=== PATIENT | female | born 1950 | race Caucasian/White ===

== ENCOUNTER → 2017-10-06 | Outpatient (CLI) | payer MEDICARE, BC ==
[~2017-10-06] MED LIST: ASPIR 8181 MG PO; CELEXA20 MG PO; EVISTA PO; KEFLEX500 MG PO; LASIX 20 MG TAB20 MG PO; NAMENDA XR28 MG PO; NEOSPORIN OINTM15 GM TP; POTASSIUM20 PO; TRAMADOL 50 MG50 MG PO; VITAMIN D1000 UNI1 PO; WOMEN'S DAILY1 EAC4 PO
== END ==
LOC: M.ULTRA 15:00
DX: M79.605 Pain in left leg (principal); L97.321 Non-pressure chronic ulcer of left ankle limited to breakdown of skin; M79.89 Other specified soft tissue disorders

== ENCOUNTER → 2017-11-18 | Outpatient (CLI) | payer MEDICARE, BC | LOC: M.WC 08:51 | DX: L89.623 Pressure ulcer of left heel, stage 3 (principal); I70.235 Atherosclerosis of native arteries of right leg with ulceration of other part of foot; L97.511 Non-pressure chronic ulcer of other part of right foot limited to breakdown of skin; I10 Essential (primary) hypertension; F01.50 Vascular dementia, unspecified severity, without behavioral disturbance, psychotic disturbance, mood disturbance, and anxiety; F33.1 Major depressive disorder, recurrent, moderate; Z68.25 Body mass index [BMI] 25.0-25.9, adult ==

== ENCOUNTER → 2017-11-25 | Outpatient (CLI) | payer MEDICARE, BC | LOC: M.WC 04:38 | DX: I70.235 Atherosclerosis of native arteries of right leg with ulceration of other part of foot (principal); L97.511 Non-pressure chronic ulcer of other part of right foot limited to breakdown of skin; L89.623 Pressure ulcer of left heel, stage 3; I10 Essential (primary) hypertension; F01.50 Vascular dementia, unspecified severity, without behavioral disturbance, psychotic disturbance, mood disturbance, and anxiety; F33.1 Major depressive disorder, recurrent, moderate; Z68.25 Body mass index [BMI] 25.0-25.9, adult ==

== ENCOUNTER → 2017-12-03 | Outpatient (CLI) | payer MEDICARE, BC | LOC: M.WC 12-02 08:30 | DX: I70.235 Atherosclerosis of native arteries of right leg with ulceration of other part of foot (principal); L97.511 Non-pressure chronic ulcer of other part of right foot limited to breakdown of skin; L89.623 Pressure ulcer of left heel, stage 3; I10 Essential (primary) hypertension; L84 Corns and callosities; F01.50 Vascular dementia, unspecified severity, without behavioral disturbance, psychotic disturbance, mood disturbance, and anxiety; F33.1 Major depressive disorder, recurrent, moderate; Z68.25 Body mass index [BMI] 25.0-25.9, adult; Z90.710 Acquired absence of both cervix and uterus ==

== ENCOUNTER → 2017-12-09 | Outpatient (CLI) | payer MEDICARE, BC | LOC: M.WC 02:23 | DX: I70.261 Atherosclerosis of native arteries of extremities with gangrene, right leg (principal); L97.511 Non-pressure chronic ulcer of other part of right foot limited to breakdown of skin; L89.623 Pressure ulcer of left heel, stage 3; I10 Essential (primary) hypertension; F01.50 Vascular dementia, unspecified severity, without behavioral disturbance, psychotic disturbance, mood disturbance, and anxiety; F33.1 Major depressive disorder, recurrent, moderate; Z68.25 Body mass index [BMI] 25.0-25.9, adult; Z90.710 Acquired absence of both cervix and uterus ==

== ENCOUNTER → 2017-12-16 | Outpatient (CLI) | payer MEDICARE, BC | LOC: M.WC 01:07 | DX: I70.235 Atherosclerosis of native arteries of right leg with ulceration of other part of foot (principal); L97.511 Non-pressure chronic ulcer of other part of right foot limited to breakdown of skin; L89.623 Pressure ulcer of left heel, stage 3; I10 Essential (primary) hypertension; F01.50 Vascular dementia, unspecified severity, without behavioral disturbance, psychotic disturbance, mood disturbance, and anxiety; F33.1 Major depressive disorder, recurrent, moderate; Z68.25 Body mass index [BMI] 25.0-25.9, adult ==

== ENCOUNTER → 2017-12-23 | Outpatient (CLI) | payer MEDICARE, BC | LOC: M.WC 03:53 | DX: L89.623 Pressure ulcer of left heel, stage 3 (principal); I70.261 Atherosclerosis of native arteries of extremities with gangrene, right leg; L97.511 Non-pressure chronic ulcer of other part of right foot limited to breakdown of skin; I87.303 Chronic venous hypertension (idiopathic) without complications of bilateral lower extremity; F01.50 Vascular dementia, unspecified severity, without behavioral disturbance, psychotic disturbance, mood disturbance, and anxiety; F33.1 Major depressive disorder, recurrent, moderate; Z90.710 Acquired absence of both cervix and uterus ==

== ENCOUNTER → 2017-12-29 | Outpatient (CLI) | payer MEDICARE, BC | LOC: M.WC 08:30 | DX: L89.623 Pressure ulcer of left heel, stage 3 (principal); I70.261 Atherosclerosis of native arteries of extremities with gangrene, right leg; I87.303 Chronic venous hypertension (idiopathic) without complications of bilateral lower extremity; F01.50 Vascular dementia, unspecified severity, without behavioral disturbance, psychotic disturbance, mood disturbance, and anxiety; F33.1 Major depressive disorder, recurrent, moderate; Z68.25 Body mass index [BMI] 25.0-25.9, adult ==

== ENCOUNTER → 2018-01-06 | Outpatient (CLI) | payer MEDICARE, BC | LOC: M.WC 03:55 | DX: I70.235 Atherosclerosis of native arteries of right leg with ulceration of other part of foot (principal); L97.511 Non-pressure chronic ulcer of other part of right foot limited to breakdown of skin; L89.623 Pressure ulcer of left heel, stage 3; I10 Essential (primary) hypertension; F01.50 Vascular dementia, unspecified severity, without behavioral disturbance, psychotic disturbance, mood disturbance, and anxiety; F33.1 Major depressive disorder, recurrent, moderate; Z90.710 Acquired absence of both cervix and uterus ==

== ENCOUNTER → 2018-01-13 | Outpatient (CLI) | payer MEDICARE, BC | LOC: M.WC 02:07 | DX: L89.623 Pressure ulcer of left heel, stage 3 (principal); I70.261 Atherosclerosis of native arteries of extremities with gangrene, right leg; L97.511 Non-pressure chronic ulcer of other part of right foot limited to breakdown of skin; I87.313 Chronic venous hypertension (idiopathic) with ulcer of bilateral lower extremity; L97.521 Non-pressure chronic ulcer of other part of left foot limited to breakdown of skin; I10 Essential (primary) hypertension; F01.50 Vascular dementia, unspecified severity, without behavioral disturbance, psychotic disturbance, mood disturbance, and anxiety; F33.1 Major depressive disorder, recurrent, moderate; Z90.710 Acquired absence of both cervix and uterus ==

== ENCOUNTER → 2018-01-20 | Outpatient (CLI) | payer MEDICARE, BC | LOC: M.WC 03:45 | DX: L89.623 Pressure ulcer of left heel, stage 3 (principal); I70.235 Atherosclerosis of native arteries of right leg with ulceration of other part of foot; L97.511 Non-pressure chronic ulcer of other part of right foot limited to breakdown of skin; I10 Essential (primary) hypertension; F01.50 Vascular dementia, unspecified severity, without behavioral disturbance, psychotic disturbance, mood disturbance, and anxiety; F33.1 Major depressive disorder, recurrent, moderate; Z68.25 Body mass index [BMI] 25.0-25.9, adult; Z90.710 Acquired absence of both cervix and uterus ==

== ENCOUNTER → 2018-01-27 | Outpatient (CLI) | payer MEDICARE, BC | LOC: M.WC 03:42 | DX: L89.893 Pressure ulcer of other site, stage 3 (principal); I70.235 Atherosclerosis of native arteries of right leg with ulceration of other part of foot; L97.511 Non-pressure chronic ulcer of other part of right foot limited to breakdown of skin; I87.303 Chronic venous hypertension (idiopathic) without complications of bilateral lower extremity; F01.50 Vascular dementia, unspecified severity, without behavioral disturbance, psychotic disturbance, mood disturbance, and anxiety; F33.1 Major depressive disorder, recurrent, moderate; Z68.25 Body mass index [BMI] 25.0-25.9, adult; Z90.710 Acquired absence of both cervix and uterus ==

== ENCOUNTER → 2018-02-03 | Outpatient (CLI) | payer MEDICARE, BC | LOC: M.WC 02:09 | DX: I70.235 Atherosclerosis of native arteries of right leg with ulceration of other part of foot (principal); L97.511 Non-pressure chronic ulcer of other part of right foot limited to breakdown of skin; F01.50 Vascular dementia, unspecified severity, without behavioral disturbance, psychotic disturbance, mood disturbance, and anxiety; F32.9 Major depressive disorder, single episode, unspecified; Z86.73 Personal history of transient ischemic attack (TIA), and cerebral infarction without residual deficits; Z90.710 Acquired absence of both cervix and uterus ==

== ENCOUNTER → 2018-02-10 | Outpatient (CLI) | payer MEDICARE, BC | LOC: M.WC 03:21 | DX: I70.235 Atherosclerosis of native arteries of right leg with ulceration of other part of foot (principal); L97.511 Non-pressure chronic ulcer of other part of right foot limited to breakdown of skin; I70.261 Atherosclerosis of native arteries of extremities with gangrene, right leg; I87.303 Chronic venous hypertension (idiopathic) without complications of bilateral lower extremity; L84 Corns and callosities; F01.50 Vascular dementia, unspecified severity, without behavioral disturbance, psychotic disturbance, mood disturbance, and anxiety; F33.1 Major depressive disorder, recurrent, moderate; Z86.73 Personal history of transient ischemic attack (TIA), and cerebral infarction without residual deficits; Z90.710 Acquired absence of both cervix and uterus ==

== ENCOUNTER → 2018-02-24 | Outpatient (CLI) | payer MEDICARE, BC | LOC: M.WC 02:24 | DX: I70.261 Atherosclerosis of native arteries of extremities with gangrene, right leg (principal); L97.516 Non-pressure chronic ulcer of other part of right foot with bone involvement without evidence of necrosis; L89.623 Pressure ulcer of left heel, stage 3; I87.313 Chronic venous hypertension (idiopathic) with ulcer of bilateral lower extremity; F01.50 Vascular dementia, unspecified severity, without behavioral disturbance, psychotic disturbance, mood disturbance, and anxiety; F33.1 Major depressive disorder, recurrent, moderate; Z68.25 Body mass index [BMI] 25.0-25.9, adult; Z86.73 Personal history of transient ischemic attack (TIA), and cerebral infarction without residual deficits ==

== ENCOUNTER → 2018-09-12 | Outpatient (CLI) | payer MEDICARE, BC | LOC: M.RAD 13:48 | DX: M84.472D Pathological fracture, left ankle, subsequent encounter for fracture with routine healing (principal); M25.572 Pain in left ankle and joints of left foot; M81.0 Age-related osteoporosis without current pathological fracture; Z90.710 Acquired absence of both cervix and uterus; X58.XXXD Exposure to other specified factors, subsequent encounter ==

== ENCOUNTER 2018-12-25 17:53 | Emergency (ER) | payer MEDICARE, BC ==
[~2018-12-25] VITALS: Ht 162.6 cm; Wt 76.8 kg
[2018-12-25] MEDS ORDERED: ARICEPT10 M1 PO (18:20)
[2018-12-25] MEDS ORDERED: PRINIVIL5 MG PO (18:20)
[2018-12-25 18:36] LABS: ABSOLUTE EOSINOPHILS 0.1 thou/uL (0.0-0.7); ABSOLUTE LYMPHOCYTES 0.6 thou/uL (0.8-5.3); ABSOLUTE MONOCYTES 0.9 thou/uL (0.0-1.2); BASOPHILS 0.5 %; EOSINOPHILS 0.7 %; HEMATOCRIT 47.6 % (37.0-47.0); LYMPHOCYTES 7.4 %; MCH 32.4 pg (26.0-34.0); MCHC 33.6 g/dL (28.0-37.0); MCV 96.3 fL (80.0-100.0); MONOCYTES 10.1 %; MPV 8.4 fl. (7.2-11.1); NUCLEATED RBCS 0 /100WBC; PLATELET COUNT* 208 thou/uL (150-400); POLYS 81.3 %; RBC 4.94 mil/uL (4.20-5.00); RDW-CV 14.6 % (10.5-14.5); WBC 8.6 thou/uL (4.0-11.0)
[2018-12-25 18:44] LABS: CREATININE 1.3 mg/dL (0.6-1.3); POTASSIUM 4.3 mmol/L (3.5-5.1)
[2018-12-25 18:49] LABS: ALBUMIN 3.3 g/dL (3.4-5.0); TOTAL BILIRUBIN 0.7 mg/dL (<0.1-1.0); TOTAL PROTEIN 7.2 g/dL (6.4-8.2)
[2018-12-25 21:01] LABS: URINE BILIRUBIN NEGATIVE (Negative); URINE BLOOD TRACE (Negative); URINE COLOR YELLOW; URINE GLUCOSE-RANDOM NEGATIVE (Negative); URINE KETONES TRACE (Negative); URINE PROTEIN 1+ (Negative); URINE SPECIFIC GRAVITY 1.025 (1.005-1.030); URINE UROBILINOGEN 0.2 E.U./dl (0.2-1.0)
[2018-12-25 21:02] LABS: URINE CLARITY HAZY; URINE LEUKOCYTES-REFLEX 2+ (Negative); URINE NITRITE-REFLEX POSITIVE (Negative)
[2018-12-25] MEDS ORDERED: MACRODANTIN100 MG PO (21:04)
[2018-12-25 21:12] LABS: BACTERIA-REFLEX >30 Many /HPF (None Seen); CASTS None Seen /LPF (None Seen); CRYSTALS None Seen /LPF (None Seen); MUCUS 0-3 Light strn/LPF (None Seen); SQUAMOUS NONE SEEN /LPF (0-3); URINE RBC None Seen /HPF (0-2); URINE WBC-REFLEX >25 Many /HPF (0-5)
[2018-12-25 21:16] VITALS: BP 99/55
== END 2018-12-25 21:36 | disposition home or self-care (01) ==
LOC: M.ERS 17:53
PROVIDERS: Nurse Practitioner Family
DX: N39.0 Urinary tract infection, site not specified (principal); R41.0 Disorientation, unspecified; M81.0 Age-related osteoporosis without current pathological fracture; F03.90 Unspecified dementia, unspecified severity, without behavioral disturbance, psychotic disturbance, mood disturbance, and anxiety; Z90.710 Acquired absence of both cervix and uterus

== ENCOUNTER 2019-02-07 12:13 | Emergency (ER) | payer MEDICARE, BC ==
[~2019-02-07] VITALS: Ht 170.2 cm; Wt 77.1 kg
[~2019-02-07 12:13] MED LIST changes: +ARICEPT10 M1 PO; +MACRODANTIN100 MG PO; +PRINIVIL5 MG PO
[2019-02-07 13:20] LABS: ABSOLUTE BASOPHILS 0.1 thou/uL (0.0-0.2); ABSOLUTE EOSINOPHILS 0.3 thou/uL (0.0-0.7); ABSOLUTE MONOCYTES 0.7 thou/uL (0.0-1.2); ABSOLUTE NEUTROPHILS 5.5 thou/uL (1.6-8.1); BASOPHILS 0.9 %; EOSINOPHILS 3.9 %; HEMATOCRIT 44.7 % (37.0-47.0); HEMOGLOBIN 14.9 gm/dL (12.0-15.0); LYMPHOCYTES 12.8 %; MCH 32.4 pg (26.0-34.0); MCHC 33.4 g/dL (28.0-37.0); MCV 97.2 fL (80.0-100.0); MONOCYTES 9.7 %; MPV 8.3 fl. (7.2-11.1); NUCLEATED RBCS 0 /100WBC; PLATELET COUNT* 237 thou/uL (150-400); POLYS 72.7 %; RDW-CV 15.2 % (10.5-14.5); WBC 7.6 thou/uL (4.0-11.0)
[2019-02-07 13:28] LABS: URINE BILIRUBIN NEGATIVE (Negative); URINE BLOOD NEGATIVE (Negative); URINE CLARITY CLEAR; URINE COLOR YELLOW; URINE GLUCOSE-RANDOM NEGATIVE (Negative); URINE KETONES NEGATIVE (Negative); URINE LEUKOCYTES-REFLEX NEGATIVE (Negative); URINE NITRITE-REFLEX NEGATIVE (Negative); URINE PROTEIN NEGATIVE (Negative); URINE UROBILINOGEN 0.2 E.U./dl (0.2-1.0)
[2019-02-07 13:31] LABS: CALCIUM 10.3 mg/dL (8.5-10.1); CREATININE 1.1 mg/dL (0.6-1.3); POTASSIUM 4.5 mmol/L (3.5-5.1)
[2019-02-07 13:35] LABS: ALBUMIN 3.4 g/dL (3.4-5.0); TOTAL BILIRUBIN 0.4 mg/dL (<0.1-1.0); TOTAL PROTEIN 6.7 g/dL (6.4-8.2)
[2019-02-07 13:57] VITALS: BP 128/77
--- NOTE | 2019-02-07 14:44 | EKG ---
[place] [address] ELECTROCARDIOGRAM REPORT Name: HAO WILLSON Room: [facility]#: [id number] Admission: 02/07/19 Attend Phys: Discharge: 02/07/19 Date of : 46 Report #: [id number] THIS REPORT FOR: //name// [facility] ED Test Date: 2019-02-07 Test Time: 13:24:56 Pat Name: HAO WILLSON Department: Room: Gender: F Living Advisor: : 1950 Requested By: Alanis Renee Order Number: [id number] MD: Siva Gaitan Measurements Intervals [place] Rate: 69 P: 46 [place]: 172 QRS: -15 QRSD: 82 T: 11 QT: 383 QTc: 411 Interpretive Statements Sinus arrhythmia Borderline left axis deviation Low voltage, precordial leads Consider anterior infarct Baseline wander in lead(s) III,V4 No previous ECG available for comparison Electronically Signed On 02-07-2019 14:43:59 CDT by Siva Gaitan [email or web address] <ELECTRONICALLY SIGNED> By: Siva Gaitan MD, [facility] 02/07/19 1443 1324 1324 Siva Gaitan MD, [facility] /EPI
== END 2019-02-07 13:57 | disposition home or self-care (01) ==
LOC: M.ERS 12:13
PROVIDERS: Nurse Practitioner Family
DX: S09.8XXA Other specified injuries of head, initial encounter (principal); F03.90 Unspecified dementia, unspecified severity, without behavioral disturbance, psychotic disturbance, mood disturbance, and anxiety; M81.0 Age-related osteoporosis without current pathological fracture; Z90.710 Acquired absence of both cervix and uterus; W01.198A Fall on same level from slipping, tripping and stumbling with subsequent striking against other object, initial encounter; Y92.002 Bathroom of unspecified non-institutional (private) residence as the place of occurrence of the external cause; Y93.89 Activity, other specified; Y99.8 Other external cause status

== ENCOUNTER 2020-06-14 13:01 | Inpatient (IN) | payer MEDICARE, BC ==
[~2020-06-14] VITALS: Ht 170.2 cm; Wt 73.5 kg
[2020-06-14] VITALS (7 sets, daily range): BP systolic 116–142; BP diastolic 44–75
[~2020-06-14 13:01] MED LIST changes: +LISINOPRIL5 MG PO; -PRINIVIL5 MG PO
[2020-06-14 13:29] LABS: ABSOLUTE EOSINOPHILS 0.1 thou/uL (0.0-0.7); ABSOLUTE LYMPHOCYTES 0.7 thou/uL (0.8-5.3); ABSOLUTE MONOCYTES 0.6 thou/uL (0.0-1.2); ABSOLUTE NEUTROPHILS 4.8 thou/uL (1.6-8.1); BASOPHILS 0.5 %; EOSINOPHILS 1.6 %; LYMPHOCYTES 11.5 %; MCH 32.5 pg (26.0-34.0); MCHC 33.4 g/dL (28.0-37.0); MCV 97.4 fL (80.0-100.0); MONOCYTES 9.6 %; MPV 8.4 fl. (7.2-11.1); NUCLEATED RBCS 0 /100WBC; PLATELET COUNT* 195 thou/uL (150-400); POLYS 76.8 %; RBC 4.62 mil/uL (4.20-5.00); RDW-CV 13.7 % (10.5-14.5); WBC 6.3 thou/uL (4.0-11.0)
[2020-06-14 13:39] LABS: CALCIUM 8.9 mg/dL (8.5-10.1); CREATININE 0.9 mg/dL (0.6-1.3); POTASSIUM 3.1 mmol/L (3.5-5.1)
[2020-06-14 13:40] LABS: APTT 25.9 Seconds (25.0-31.3); PROTIME 10.9 Seconds (9.20-11.50)
[2020-06-14 13:48] LABS: ALBUMIN 2.9 g/dL (3.4-5.0); TOTAL BILIRUBIN 0.8 mg/dL (<0.1-1.0); TOTAL PROTEIN 6.6 g/dL (6.4-8.2)
--- NOTE | 2020-06-14 14:55 | EKG ---
[place] [address] ELECTROCARDIOGRAM REPORT Name: DARRELWARDHAO Elisabeth Room: 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: : 1950 Requested By: Tony Pizarro Order Number: [id number] MD: Siva Gaitan Measurements Intervals [place] Rate: 79 P: 58 [place]: 181 QRS: -8 QRSD: 81 T: 38 QT: 393 QTc: 451 Interpretive Statements Sinus arrhythmia nonspecific ST segment changes Compared to ECG 02/07/2019 13:24:56 no change Electronically Signed On 06-14-2020 14:55:22 NAVAL AIRCREW[employer] TACTICAL HELICOPTER by Siva Gaitan [email or web address] <ELECTRONICALLY SIGNED> By: Siva Gaitan MD, [facility] 06/14/20 1455 15 15 Siva Gaitan MD, [facility] /EPI
[2020-06-14 15:26] LABS: URINE BILIRUBIN NEGATIVE (Negative); URINE BLOOD NEGATIVE (Negative); URINE CLARITY CLEAR; URINE COLOR YELLOW; URINE GLUCOSE-RANDOM NEGATIVE (Negative); URINE KETONES TRACE (Negative); URINE NITRITE-REFLEX NEGATIVE (Negative); URINE PROTEIN NEGATIVE (Negative)
[2020-06-14 15:42] LABS: URINE LEUKOCYTES-REFLEX 2+ (Negative)
[2020-06-14 15:56] LABS: SQUAMOUS 0-3 Few /LPF (0-3)
[2020-06-14 15:57] LABS: BACTERIA-REFLEX >30 Many /HPF (None Seen); CASTS None Seen /LPF (None Seen); CRYSTALS None Seen /LPF (None Seen); MUCUS 0-3 Light strn/LPF (None Seen); URINE RBC 3-10 Few /HPF (0-2); URINE WBC-REFLEX >25 Many /HPF (0-5); WBC CLUMPS Few (None Seen)
[2020-06-14 16:17] LABS: CALCIUM 8.9 mg/dL (8.5-10.1); CREATININE 0.8 mg/dL (0.6-1.3); POTASSIUM 3.4 mmol/L (3.5-5.1)
[2020-06-14 16:20] LABS: MAGNESIUM 1.8 mg/dL (1.8-2.4); PHOSPHORUS* 1.8 mg/dL (2.5-4.9)
[2020-06-15 04:00] VITALS: BP 112/62
[2020-06-15 05:12] LABS: HEMATOCRIT 38.5 % (37.0-47.0); MCH 32.3 pg (26.0-34.0); MCHC 33.3 g/dL (28.0-37.0); MPV 8.7 fl. (7.2-11.1); RBC 3.97 mil/uL (4.20-5.00); RDW-CV 13.4 % (10.5-14.5); WBC 2.6 thou/uL (4.0-11.0)
[2020-06-15 05:43] LABS: HEMOGLOBIN 12.8 gm/dL (12.0-15.0)
[2020-06-15 05:44] LABS: ALBUMIN 2.3 g/dL (3.4-5.0); ALKALINE PHOSPHATASE 73 U/L (46-116); ANION GAP 7 mmol/L (7-16); BUN 13 mg/dL (7-18); CALCIUM 8.2 mg/dL (8.5-10.1); CHLORIDE 109 mmol/L (98-107); CO2 23 mmol/L (21-32); CREATININE 0.6 mg/dL (0.6-1.3); GLUCOSE 124 mg/dL (70-99); MAGNESIUM 1.7 mg/dL (1.8-2.4); POTASSIUM 3.9 mmol/L (3.5-5.1); SGOT 23 U/L (15-37); SGPT 19 U/L (30-65); SODIUM 139 mmol/L (136-145); TOTAL BILIRUBIN 0.4 mg/dL (<0.1-1.0); TOTAL PROTEIN 5.4 g/dL (6.4-8.2); TROPONIN-I LEVEL <0.06 ng/mL (<0.06)
[2020-06-15 08:30] VITALS: BP 115/62
[2020-06-15 12:00] VITALS: BP 113/58
[2020-06-15 16:00] VITALS: BP 111/59
[2020-06-15 20:59] VITALS: BP 116/59
[2020-06-16] VITALS (7 sets, daily range): BP systolic 122–146; BP diastolic 67–89
[2020-06-16 05:02] LABS: HEMATOCRIT 38.7 % (37.0-47.0); HEMOGLOBIN 12.9 gm/dL (12.0-15.0); MCH 32.2 pg (26.0-34.0); MCHC 33.3 g/dL (28.0-37.0); MCV 96.9 fL (80.0-100.0); MPV 8.4 fl. (7.2-11.1); RDW-CV 13.7 % (10.5-14.5); WBC 5.6 thou/uL (4.0-11.0)
[2020-06-16 05:28] LABS: ALBUMIN 2.2 g/dL (3.4-5.0); CALCIUM 7.4 mg/dL (8.5-10.1); CREATININE 0.7 mg/dL (0.6-1.3); MAGNESIUM 1.9 mg/dL (1.8-2.4); POTASSIUM 3.1 mmol/L (3.5-5.1); TOTAL BILIRUBIN 0.2 mg/dL (<0.1-1.0); TOTAL PROTEIN 5.2 g/dL (6.4-8.2)
[2020-06-17 00:40] VITALS: BP 134/80
[2020-06-17 04:44] VITALS: BP 152/81
[2020-06-17 09:00] VITALS: BP 125/76
[2020-06-17 14:02] VITALS: BP 115/70
[2020-06-17 17:16] VITALS: BP 129/75
[2020-06-17 22:36] VITALS: BP 142/75
[2020-06-18] VITALS (8 sets, daily range): BP systolic 105–1234; BP diastolic 63–87
[2020-06-18] MEDS ORDERED: MACROBID 100 M100 MG PO (09:06)
[2020-06-18 10:14] LABS: MAGNESIUM 1.9 mg/dL (1.8-2.4); POTASSIUM 4.1 mmol/L (3.5-5.1)
== END 2020-06-18 16:31 | disposition home health service (06) | DRG 177 ==
LOC: M.ERS 13:01 → M.ORTHSURG 15:22 → M.TBA-ER 15:22 → M.ORTHSURG 17:03
PROVIDERS: Family Medicine; Internal Medicine; ADMIT Family Medicine; ATTEND Family Medicine
DX: U07.1 COVID-19 (principal); J12.89 Other viral pneumonia; E43 Unspecified severe protein-calorie malnutrition; J96.01 Acute respiratory failure with hypoxia; G92 Toxic encephalopathy; N39.0 Urinary tract infection, site not specified; E83.42 Hypomagnesemia; I10 Essential (primary) hypertension; M81.0 Age-related osteoporosis without current pathological fracture; E87.6 Hypokalemia; F03.90 Unspecified dementia, unspecified severity, without behavioral disturbance, psychotic disturbance, mood disturbance, and anxiety; Z90.710 Acquired absence of both cervix and uterus; Z68.25 Body mass index [BMI] 25.0-25.9, adult; Z79.82 Long term (current) use of aspirin; Z79.899 Other long term (current) drug therapy

== ENCOUNTER 2020-07-11 12:40 | Inpatient (IN) | payer MEDICARE, BC ==
[~2020-07-11] VITALS: Ht 170.2 cm; Wt 85.1 kg
[~2020-07-11 12:40] MED LIST changes: +MACROBID 100 M100 MG PO
[2020-07-11 12:43] VITALS: BP 154/104
[2020-07-11 13:10] LABS: ABSOLUTE BASOPHILS 0.1 thou/uL (0.0-0.2); ABSOLUTE EOSINOPHILS 0.2 thou/uL (0.0-0.7); ABSOLUTE MONOCYTES 0.9 thou/uL (0.0-1.2); ABSOLUTE NEUTROPHILS 6.7 thou/uL (1.6-8.1); EOSINOPHILS 2.7 %; HEMATOCRIT 42.6 % (37.0-47.0); HEMOGLOBIN 14.2 gm/dL (12.0-15.0); MCH 32.6 pg (26.0-34.0); MCHC 33.3 g/dL (28.0-37.0); MCV 98.1 fL (80.0-100.0); MPV 7.8 fl. (7.2-11.1); NUCLEATED RBCS 0 /100WBC; PLATELET COUNT* 301 thou/uL (150-400); POLYS 75.3 %; RBC 4.34 mil/uL (4.20-5.00); RDW-CV 14.8 % (10.5-14.5); WBC 8.8 thou/uL (4.0-11.0)
[2020-07-11 13:13] LABS: CALCIUM 9.7 mg/dL (8.5-10.1); POTASSIUM 3.6 mmol/L (3.5-5.1)
[2020-07-11 13:25] LABS: ALBUMIN 3.6 g/dL (3.4-5.0); TOTAL BILIRUBIN 0.6 mg/dL (<0.1-1.0); TOTAL PROTEIN 7.2 g/dL (6.4-8.2)
--- NOTE | 2020-07-11 16:19 | EKG ---
[place] [address] ELECTROCARDIOGRAM REPORT Name: HAO WILLSON Room: [place] [address] ADM IN ..#: [id number] Admission: 07/11/20 Attend Phys: Stuart Chou Discharge: Date of : 46 Date of Service: 07/11/20 1325 Report #: [id number] THIS REPORT FOR: //name// [facility] ED Test Date: 2020-07-11 Test Time: 13:25:39 Pat Name: HAO WILLSON Department: Room: [facility] Gender: F Food Photographer: DIOGENES : 1950 Requested By: Tom Elaine Order Number: [id number] MD: Siva Gaitan Measurements Intervals [place] Rate: 87 P: 62 ID: 159 QRS: -7 QRSD: 77 T: 30 QT: 366 QTc: 441 Interpretive Statements Sinus rhythm poor r wave progression Probable left atrial enlargement Compared to ECG 06/14/2020 13:16:19 Sinus arrhythmia no longer present Electronically Signed On 07-11-2020 16:19:10 CLAIM SPECIALIST by Siva Gaitan [email or web address] <ELECTRONICALLY SIGNED> By: Siva Gaitan MD, [facility] 07/11/20 1619 1325 1325 Siva Gaitan MD, [facility] /EPI
[2020-07-11 17:45] VITALS: BP 161/80
[2020-07-11 18:10] VITALS: BP 134/74
--- NOTE | 2020-07-11 19:15 | NUR ---
PATIENT ARRIVED TO UNIT APPROX. 1805 WITH DIAGNOSIS OF LLE CELLULITIS AND DVT. PATIENT IS A&OX4, PLEASANT AND COOPERATIVE WITH CARES. DENIES ANY PAIN. LLE IS RED, SWOLLEN WITH APPROX. 3+ PITTING EDEMA. PATIENT STATES SHE HAD COVID APPROX. 3 WEEKS AGO AND WAS QUARANTINED IN HER [facility], TESTED NEGATIVE TODAY. PATIENT STATES SHE USES A WALKER AT HOME. DPOA IS DAUGHTER, ALETA CONCEPCION. CALL LIGHT WITHIN REACH.
[2020-07-11 20:10] VITALS: BP 130/71
[2020-07-12 04:33] VITALS: BP 120/66
--- NOTE | 2020-07-12 04:55 | NUR ---
PT SLEPT WELL OVERNIGHT. UP WITH ASSIST TO BSC TO VOID OVERNIGHT. DENIES PAIN. LLE ELEVATED ON PILLOW. RFA SL, ABX GIVEN ORDERED.AOX4, FORGETFUL, PLEASANT. CALL LITE IN EASY REACH, BED ALARM ON FOR SAFETY. LEFT MESSAGE FOR DPOA DTR HELENE LAST NIGHT WITH UPDATE ON PT CONDITION AND PLAN OF CARE.
[2020-07-12 06:20] LABS: CHOLESTEROL 220 mg/dL (<200); HDL CHOLESTEROL 59 mg/dL (>40); LDL CHOLESTEROL 147 mg/dL (<100); TC:HDL 3.7 Ratio (Not establshd); TRIGLYCERIDE 70 mg/dL (<150); VLDL 14 mg/dL (<40)
[2020-07-12 06:21] LABS: SERUM ASSESSMENT Clear
[2020-07-12 08:10] VITALS: BP 105/48
--- NOTE | 2020-07-12 12:38 | NUR ---
Pt is A&O. Resides at [facility]. Independent and active. Pt uses a walker within her apartment and uses a cane when out in the community. [facility]L provides all meals. No hx of HH or SNF. Goal is home at dc, CM following for dc needs, Pt does not anticipate having any needs. Following.
[2020-07-12] MEDS ORDERED: ELIQUIS5 MG PO (15:47)
[2020-07-12] MEDS ORDERED: VITAMIN D310 MC4 PO (15:48)
[2020-07-12] MEDS ORDERED: PEPCID20 MG PO (15:48)
[2020-07-12] MEDS ORDERED: KEFLEX500 M1 PO (16:06)
[2020-07-12 16:17] VITALS: BP 120/66
[2020-07-12 16:36] VITALS: BP 120/66
--- NOTE | 2020-07-12 21:37 | NUR ---
Pt remained A&O x4 for entire shift. Vital signs stable. Pt denies any pain. Pt reports her left leg looks better today than yesterday. Pt eager to go home today. Pt got herself dressed and ready to leave. Bed in low position, call light within reach, meds given per MAR.
[2020-07-12 23:07] LABS: GLYCOHEMOGLOBIN (HGB A1C) 5.7 % (4.8-5.6)
== END 2020-07-12 17:07 | disposition home or self-care (01) | DRG 300 ==
LOC: M.ERS 12:40 → M.TBA-ER 13:47 → M.3W 13:47
PROVIDERS: Physician Assistant; ADMIT Internal Medicine; ATTEND Internal Medicine
DX: I82.412 Acute embolism and thrombosis of left femoral vein (principal); L03.116 Cellulitis of left lower limb; M81.0 Age-related osteoporosis without current pathological fracture; F03.90 Unspecified dementia, unspecified severity, without behavioral disturbance, psychotic disturbance, mood disturbance, and anxiety; I10 Essential (primary) hypertension; F32.9 Major depressive disorder, single episode, unspecified; I82.432 Acute embolism and thrombosis of left popliteal vein; Z20.822 Contact with and (suspected) exposure to COVID-19; Z90.710 Acquired absence of both cervix and uterus; Z79.899 Other long term (current) drug therapy

== ENCOUNTER 2020-07-13 20:38 | Inpatient (IN) | payer MEDICARE, BC ==
[~2020-07-13] VITALS: Ht 170.2 cm; Wt 78.2 kg
[~2020-07-13 20:38] MED LIST changes: +ELIQUIS5 MG PO; +KEFLEX500 M1 PO; +PEPCID20 MG PO; +VITAMIN D310 MC4 PO
[2020-07-13 20:39] VITALS: BP 128/69
[2020-07-13 21:56] LABS: HEMATOCRIT 44.8 % (37.0-47.0); HEMOGLOBIN 14.9 gm/dL (12.0-15.0); MCH 32.9 pg (26.0-34.0); MCHC 33.2 g/dL (28.0-37.0); MCV 98.9 fL (80.0-100.0); MPV 8.2 fl. (7.2-11.1); NUCLEATED RBCS 0 /100WBC; PLATELET COUNT* 294 thou/uL (150-400); RBC 4.53 mil/uL (4.20-5.00); WBC 9.1 thou/uL (4.0-11.0)
[2020-07-13 22:00] LABS: CALCIUM 9.6 mg/dL (8.5-10.1); CREATININE 1.9 mg/dL (0.6-1.3); POTASSIUM 3.8 mmol/L (3.5-5.1)
[2020-07-13 22:09] LABS: ALBUMIN 3.3 g/dL (3.4-5.0); TOTAL BILIRUBIN 0.6 mg/dL (<0.1-1.0); TOTAL PROTEIN 6.8 g/dL (6.4-8.2)
[2020-07-13 22:22] LABS: ABSOLUTE EOSINOPHILS 0.2 thou/uL (0.0-0.7); ABSOLUTE LYMPHOCYTES 0.1 thou/uL (0.8-5.3); ABSOLUTE MONOCYTES 0.5 thou/uL (0.0-1.2); ABSOLUTE NEUTROPHILS 8.3 thou/uL (1.6-8.1)
[2020-07-13 22:23] LABS: PLATELET ESTIMATE ADEQUATE
[2020-07-14 01:50] VITALS: BP 120/50
[2020-07-14 05:57] VITALS: BP 116/49
[2020-07-14 10:00] VITALS: BP 110/64
[2020-07-14 10:55] LABS: URINE BILIRUBIN NEGATIVE (Negative); URINE BLOOD TRACE (Negative); URINE CLARITY CLEAR; URINE COLOR DARK YELLOW; URINE GLUCOSE-RANDOM NEGATIVE (Negative); URINE KETONES NEGATIVE (Negative); URINE LEUKOCYTES-REFLEX NEGATIVE (Negative); URINE NITRITE-REFLEX NEGATIVE (Negative); URINE PROTEIN TRACE (Negative); URINE SPECIFIC GRAVITY 1.025 (1.005-1.030); URINE UROBILINOGEN 0.2 E.U./dl (0.2-1.0)
[2020-07-14 14:05] VITALS: BP 110/64
[2020-07-14 14:30] VITALS: BP 127/61
[2020-07-14 16:29] VITALS: BP 134/68
--- NOTE | 2020-07-14 18:14 | NUR ---
PATIENT ARRIVED FROM ER THIS AFTERNOON. PATIENT SETTLED TO ROOM AND HISTORY, ASSESSMENT AND VITALS COMPLETED AND DOCUMENTED. PATIENT RESTING IN BED AT THIS TIME. PATIENT DENIES ANY PAIN. PATIENT IS UP WITH ASSIST OF ONE TO BEDSIDE COMMODE. PATIENT DENIES ANY NEEDS AT THIS TIME. CALL LIGHT WITHIN REACH. BED ALARM ON.
[2020-07-15 04:09] LABS: ABSOLUTE EOSINOPHILS 0.6 thou/uL (0.0-0.7); ABSOLUTE LYMPHOCYTES 0.6 thou/uL (0.8-5.3); ABSOLUTE MONOCYTES 0.6 thou/uL (0.0-1.2); ABSOLUTE NEUTROPHILS 5.4 thou/uL (1.6-8.1); BASOPHILS 0.4 %; EOSINOPHILS 8.4 %; HEMATOCRIT 37.7 % (37.0-47.0); LYMPHOCYTES 8.3 %; MCH 32.6 pg (26.0-34.0); MCV 98.9 fL (80.0-100.0); MONOCYTES 8.2 %; MPV 7.8 fl. (7.2-11.1); NUCLEATED RBCS 0 /100WBC; PLATELET COUNT* 234 thou/uL (150-400); POLYS 74.7 %; RBC 3.81 mil/uL (4.20-5.00); RDW-CV 15.2 % (10.5-14.5); WBC 7.2 thou/uL (4.0-11.0)
[2020-07-15 04:35] LABS: CALCIUM 8.3 mg/dL (8.5-10.1); POTASSIUM 3.3 mmol/L (3.5-5.1)
[2020-07-15 05:08] LABS: CREATININE 0.8 mg/dL (0.6-1.3)
[2020-07-15 05:16] LABS: HEMOGLOBIN 12.4 gm/dL (12.0-15.0)
--- NOTE | 2020-07-15 10:07 | EKG ---
[place] [address] ELECTROCARDIOGRAM REPORT Name: HAO WILLSON Room: [address] ADM IN M.R.#: [id number] Admission: 07/13/20 Attend Phys: Patel Martinez, Discharge: Date of : 46 Date of Service: 07/13/202057 Report #: [id number] THIS REPORT FOR: //name// [facility] ED Test Date: 2020-07-13 Test Time: 20:58:38 Pat Name: HAO WILLSON Department: Room: [address] Gender: F Tire Fixer: [place] : 1950 Requested By: Joanie José Order Number: [id number] MD: Blaine Yoon Measurements Intervals [place] Rate: 79 P: 52 PA: 154 QRS: -15 QRSD: 81 T: 18 QT: 390 QTc: 448 Interpretive Statements Sinus rhythm Atrial premature complex Inferior infarct, old Compared to ECG 07/11/2020 13:25:39 Atrial premature complex(es) now present Myocardial infarct finding now present Poor R-wave progression persists Electronically Signed On 07-15-2020 10:06:52 TOURS HOSTESS by Blaine Yoon [email or web address] <ELECTRONICALLY SIGNED> By: Blaine Yoon MD, FACC 07/15/20 1006 57 57 Blaine Yoon MD, [facility] /EPI
--- NOTE | 2020-07-15 16:00 | NUR ---
PT.KNOWN FROM PREVIOUS HOSPITALIZATIONS. SHE LIVES IN AN INDEPENDENT APT.AT THE [facility] HERE IN [place]. SHE WILL EITHER USE A CANE OR WALKER AT HOME. FELL IN HER BATHROOM WHICH PROMPTED A RETURN ADMISSION TO THE HOSPITAL. DISCUSSED WITH AND NURSING. PT.IS TO BE MOVING TO AN ASSISTED LIVING APT.IN SEVERAL WEEKS AT THE [facility]. IT IS RECOMMENDED PT.GO TO SNF FOR THERAPIES UNTIL THAT TIME. SAID DAUGHTER WAS AGREEABLE. SPOKE WITH PT. AND SHE WAS AGREEABLE. LEFT LIST OF NURSING FACILITIES IN PTS ROOM AND TOLD HER I WOULD CALL HER DAUGHTER. SHE WAS AGREEABLE FOR ME TO CALL HER DAUGHTER. HAD TO LEAVE A VM FOR HELENE CONCEPCION [phone]. WILL ATTEMPT TO CALL AGAIN IN AM.
[2020-07-15 17:19] VITALS: BP 135/65
[2020-07-15 20:00] VITALS: BP 139/74
--- NOTE | 2020-07-15 20:35 | NUR ---
Pt remained A&O x4 for entire shift although forgetful at times. Vital signs stable. Pt denies any pain. Pt using call light appropriately. Pt given meds per SEP. Bed in low position, call light within reach.
[2020-07-16 04:21] LABS: ABSOLUTE EOSINOPHILS 0.6 thou/uL (0.0-0.7); ABSOLUTE LYMPHOCYTES 0.7 thou/uL (0.8-5.3); ABSOLUTE MONOCYTES 0.6 thou/uL (0.0-1.2); ABSOLUTE NEUTROPHILS 6.4 thou/uL (1.6-8.1); BASOPHILS 0.5 %; HEMATOCRIT 36.7 % (37.0-47.0); HEMOGLOBIN 12.3 gm/dL (12.0-15.0); LYMPHOCYTES 8.8 %; MCH 32.4 pg (26.0-34.0); MCHC 33.6 g/dL (28.0-37.0); MCV 96.4 fL (80.0-100.0); MONOCYTES 7.3 %; MPV 8.2 fl. (7.2-11.1); NUCLEATED RBCS 0 /100WBC; PLATELET COUNT* 239 thou/uL (150-400); POLYS 76.4 %; RBC 3.81 mil/uL (4.20-5.00); RDW-CV 14.6 % (10.5-14.5); WBC 8.4 thou/uL (4.0-11.0)
[2020-07-16 04:35] LABS: CALCIUM 8.6 mg/dL (8.5-10.1); CREATININE 0.6 mg/dL (0.6-1.3); POTASSIUM 3.1 mmol/L (3.5-5.1)
[2020-07-16 08:20] VITALS: BP 133/72
--- NOTE | 2020-07-16 09:10 | NUR ---
SPOKE WITH PTS DAUGHTER, HELENE, ON PHONE. DISCUSSED POC. SHE WOULD BE INTERESTED IN [facility] AND [facility] FOR HER MOM TO GO TO FOR THERAPIES. SHE IS IN HOPES SHE COULD STAY THERE TO STAY 'SAFE' UNTIL SHE CAN MOVE INTO ASSITED LIVING APT.AT THE [place]. WILL MAKE REFERRALS TO BOTH FACILIITES.
[2020-07-16 09:18] VITALS: BP 133/72
--- NOTE | 2020-07-16 09:34 | NUR ---
REFERRAL PACKET FAXED TO [facility] ([phone]) AND [facility] ([phone]) TO CONTINUE TO FOLLOW FOR D/C PLANNING.
--- NOTE | 2020-07-16 11:41 | NUR ---
REFERRAL PACKET FAXED TO [facility] PER DAUGHTERREQUEST ([phone]) CM TO CONTINUE TO FOLLOW FOR D/CPLANNING.
[2020-07-16] MEDS ORDERED: ANUSOL-HC30 GM TOP (12:06)
--- NOTE | 2020-07-16 13:35 | NUR ---
THIS NURSE AGREES WITH ASSESSMENT BY MARBELLA VELEZ
--- NOTE | 2020-07-16 15:06 | NUR ---
[facility] CAN ACCEPT PT. TODAY. THEY WILL ARRANGE [facility] FOR [phone]. NOTIFIED PT.AND DAUGHTER. GAVE PT.PAMPHLET ON FACILITY WITH PICTURES. CM NOTIFIED OTHER FACILITIES, THAT REFERRALS WERE SENT TO, THAT PT.CHOSE ANOTHER FACILITY. CM FAXED DISCHARGE SUMMARY AND DISCHARGE MEDS TO [facility] [phone]. CHART COPIED TO GO WITH PT. NURSING TO CALL REPORT TO [phone].
--- NOTE | 2020-07-16 15:21 | NUR ---
PT CHART COPIED. PT BELONGINGS GATHERED. PICTURES TAKEN. PT LEFT VIA WHEELCHAIR WITH NURSING STAFF TO FACILITY. FALL RISK PRECAUTIONS IN PLACE. HOURLY ROUNDING COMPLETED. REPORT CALLED TO FACILITY.
== END 2020-07-16 15:22 | DRG 683 ==
LOC: M.ERS 20:38 → M.3W 21:50 → M.TBA-ER 21:50 → M.3W 07-14 15:05
PROVIDERS: Personal Emergency Response Attendant; ADMIT Internal Medicine; ATTEND Internal Medicine
DX: N17.0 Acute kidney failure with tubular necrosis (principal); E87.0 Hyperosmolality and hypernatremia; I82.409 Acute embolism and thrombosis of unspecified deep veins of unspecified lower extremity; S05.12XA Contusion of eyeball and orbital tissues, left eye, initial encounter; M81.0 Age-related osteoporosis without current pathological fracture; S01.112A Laceration without foreign body of left eyelid and periocular area, initial encounter; W18.39XA Other fall on same level, initial encounter; Z20.822 Contact with and (suspected) exposure to COVID-19; F03.90 Unspecified dementia, unspecified severity, without behavioral disturbance, psychotic disturbance, mood disturbance, and anxiety; Z90.710 Acquired absence of both cervix and uterus; Z79.899 Other long term (current) drug therapy; Z79.2 Long term (current) use of antibiotics; Y93.89 Activity, other specified; Y92.89 Other specified places as the place of occurrence of the external cause; Y99.8 Other external cause status

== ENCOUNTER 2020-08-16 10:29 | Inpatient (IN) | payer MEDICARE, BC ==
[~2020-08-16] VITALS: Ht 170.2 cm; Wt 80.0 kg
--- NOTE | ~2020-08-16 | EMS ---
[address] [place] [address] EMS Patient Care Report Name: HAO WILLSON Room: [address]#: [id number] Admission: 08/16/20 Attend Phys: Jaycee Shelton Discharge: 08/19/20 Date of : 46 Report #: [id number] THIS REPORT FOR: //name// Report Transmitted: 08/21/2020 14:44 EMS Care Summary ADAM PINEDA Incident [id number] @ 08/16/2020 09:54 Incident Location [address] [place] [address] Patient HAO WILLSON Female, 70 Years 1950 Patient Address [address] [place] [address] Patient History Unspecified dementia,Hypertension (HTN),Other venous embolism and thrombosis, Patient Allergies No known allergies, Patient Medications Xarelto, Celexa, Aricept, Famotidine, Lisinopril, Lisinopril, Potassium, Chief Complaint Fall Disposition Transported No Lights/[place] Dispatch Reason Falls Transported To [facility] Narrative [facility] RESPONDED TO A PRIVATE RESIDENCE FOR A FEMALE WITH A FALL AND HIT TO THE HEAD. EMS ARRIVED ON SCENE TO FIND A FEMALE, LAYING ON THE GROUND, IN NO OBVIOUS DISTRESS. PATIENT WAS ACCOMPANIED BY A STAFF NURSE. SHE ADVISED THAT THE PATIENT WAS FOUND ON THE GROUND. THE ONLY BLOOD FOUND WAS ON THE TOILET, [place] [address] EMS Patient Care Report Name: HAO WILLSON Room: [address] IN M.R.#: [id number] Admission: 08/16/20 Attend Phys: Jaycee Shelton Discharge: 08/19/20 Date of : 46 Report #: [id number] BUT SHE WAS FOUND IN THE MIDDLE OF THE LIVING ROOM FLOOR. PATIENT WAS UNSURE OF HOW SHE FELL OR WHEN SHE FELL. PATIENT HAD BEEN SEEN AT [facility], AT 4AM THAT DAY, FOR A FALL THAT INVOLVED A HEMATOMA TO HER LEG. ACCORDING TO THE STAFF, SHE HAS A HISTORY OF "FORGETTING THINGS". PATIENT DID NOT COMPLAIN OF HEAD, NECK OR BACK PAIN. SEE TX/RX FOR TREATMENTS RENDERED. PATIENT WAS ASSISTED TO HER FEET AND THE EMS COT WAS PLACED UNDER HER. PATIENT WAS LOWERED TO THE COT WITH HELP AND SECURED VIA 3 SAFETY STRAPS. PATIENT TRANSPORTED TO [facility], PER HER REQUEST. PATIENT CONDITION DID NOT CHANGE EN ROUTE. PATIENT WAS TAKEN TO ED ROOM 17 UPON ARRIVAL. PATIENT WAS SHEET TRANSFERRED FROM EMS COT TO ED BED. PATIENT CARE REPORT WAS GIVEN AND CARE WAS TRANSFERRED. [facility] WENT BACK IN SERVICE. END OF REPORT. Initial Vitals @10:16Pain: 10/12, @10:07P: 79,R: 15,BP: 126/69,Revised Trauma: 8, @10:21P: 76,R: 15,BP: 133/81,Revised Trauma: 8, @10:07GCS: 15, @10:21GCS: 15, @10:00 Assessments @10:00MENTAL:SKIN:HEENT:LUNG SOUNDS:ABDOMEN:PELVIS//GI:EXTREMITIES:PULSE:NEURO: Impression Injury Procedures @10:18 cc () Site: Antecubital-RightResponse: UnchangedFailed Timeline 09:52,Call Received 09:52,Dispatch Notified 09:52,Psap Call 09:54,Dispatched 09:54,En Route 09:56,On Scene 10:00,At Patient 10:00,BP: / M,PULSE: ,RR: R,SPO2: Ox,ETCO2: ,BG: ,PAIN: ,GCS: , 10:07,BP: 126/69 M,PULSE: 79,RR: 15 R,SPO2: Ox,ETCO2: ,BG: ,PAIN: ,GCS: , 10:07,BP: / M,PULSE: ,RR: R,SPO2: Ox,ETCO2: ,BG: ,PAIN: ,GCS: 15, 10:14,Depart Scene 10:16,BP: / M,PULSE: ,RR: R,SPO2: Ox,ETCO2: ,BG: ,PAIN: 4,GCS: , 10:18, cc Site: Antecubital-Right,Response: UnchangedFailed, 10:21,BP: 133/81 M,PULSE: 76,RR: 15 R,SPO2: Ox,ETCO2: ,BG: ,PAIN: ,GCS: , 10:21,BP: / M,PULSE: ,RR: R,SPO2: Ox,ETCO2: ,BG: ,PAIN: ,GCS: 15, [place] [address] EMS Patient Care Report Name: HAO WILLSON Elisabeth Room: [address] IN M.R.#: [id number] Admission: 08/16/20 Attend Phys: Jaycee Shelton Discharge: 08/19/20 Date of : 46 Report #: [id number] 10:26,At Destination 10:45,Call Closed Disclaimer v1.1 Copyright 2020 [employer] This EMS Care Summary contains data elements from the applicable legal record (which may be displayed differently). It is designed to provide pertinent information for the following purposes: continuity of care, clinical quality, and state data reporting. The complete legal record is available to ED staff and administrators of the receiving hospital in [facility]'s Patient Tracker. All data is provided "as is."
[~2020-08-16 10:29] MED LIST changes: +ANUSOL-HC30 GM TOP
[2020-08-16 10:35] VITALS: BP 106/71
[2020-08-16] MEDS ORDERED: ONE DAILY ESSE1 EACH PO (10:41)
[2020-08-16] MEDS ORDERED: POTASSIUM20 PO (10:41)
[2020-08-16 10:54] LABS: ABSOLUTE BASOPHILS 0.1 thou/uL (0.0-0.2); ABSOLUTE EOSINOPHILS 0.1 thou/uL (0.0-0.7); ABSOLUTE MONOCYTES 1.4 thou/uL (0.0-1.2); ABSOLUTE NEUTROPHILS 12.7 thou/uL (1.6-8.1); BASOPHILS 0.4 %; EOSINOPHILS 0.4 %; HEMATOCRIT 40.4 % (37.0-47.0); LYMPHOCYTES 6.3 %; MCH 30.7 pg (26.0-34.0); MCHC 32.2 g/dL (28.0-37.0); MCV 95.6 fL (80.0-100.0); MONOCYTES 9.3 %; NUCLEATED RBCS 0 /100WBC; PLATELET COUNT* 267 thou/uL (150-400); POLYS 83.6 %; RBC 4.23 mil/uL (4.20-5.00); WBC 15.2 thou/uL (4.0-11.0)
[2020-08-16 11:03] LABS: CALCIUM 9.3 mg/dL (8.5-10.1); CREATININE 1.4 mg/dL (0.6-1.3)
[2020-08-16 11:06] LABS: APTT 20.2 Seconds (25.0-31.3); PROTIME 10.2 Seconds (9.20-11.50)
[2020-08-16 11:08] LABS: ALBUMIN 3.5 g/dL (3.4-5.0); TOTAL BILIRUBIN 0.3 mg/dL (<0.1-1.0); TOTAL PROTEIN 6.8 g/dL (6.4-8.2)
[2020-08-16 11:11] LABS: URINE BILIRUBIN NEGATIVE (Negative); URINE BLOOD NEGATIVE (Negative); URINE CLARITY CLEAR; URINE COLOR YELLOW; URINE GLUCOSE-RANDOM NEGATIVE (Negative); URINE KETONES NEGATIVE (Negative); URINE LEUKOCYTES-REFLEX TRACE (Negative); URINE NITRITE-REFLEX NEGATIVE (Negative); URINE PROTEIN 1+ (Negative); URINE SPECIFIC GRAVITY 1.025 (1.005-1.030); URINE UROBILINOGEN 0.2 E.U./dl (0.2-1.0)
[2020-08-16 11:17] LABS: SQUAMOUS >10 Many /LPF (0-3)
[2020-08-16 11:18] LABS: URINE WBC-REFLEX 6-15 Few /HPF (0-5); WBC CLUMPS Few (None Seen)
[2020-08-16 11:19] LABS: BACTERIA-REFLEX >30 Many /HPF (None Seen); URINE RBC None Seen /HPF (0-2)
[2020-08-16 11:20] LABS: CRYSTALS None Seen /LPF (None Seen); FINE GRANULAR CASTS 0-3 Few /LPF (None Seen); HYALINE CASTS >10 Many /LPF (None Seen); MUCUS >6 Heavy strn/LPF (None Seen)
--- NOTE | 2020-08-16 12:02 | NUR ---
PT'S DAUGHTER, ALETA CONCEPCION, CALLED TO CHECK ON PATIENT. SHE HAS THE PATIENT'S PERMISSION TO HAVE PATIENT INFORMATION. ALETA WOULD LIKE TO BE CALLED ONCE THE PATIENT IS ADMITTED TO A ROOM. ALETA'S # [phone]
[2020-08-16 13:46] VITALS: BP 111/48
[2020-08-16 16:08] VITALS: BP 141/61
--- NOTE | 2020-08-16 17:54 | NUR ---
PT UP FROM ED DENIES PAIN UNLESS LEG OR HEAD IS TOUCHED, JUST SENSITIVE, DRIED BLOOD TO BACK OF HEAD 3 GINNY SHOWING CLEANED IT UP FC CONTINUES RLE 3+ EDEMA WITH SCARRING AND BLACK/PURPLE BRUISING FIRMNESS DID NOT TRY TO GET UP EXPLAINED FALL RISK PRECAUTIONS SLIGHT CONFUSION WITH FORGETFULNESS CALL LIGHT IN REACH ROOM BY DESK SR ON THE MONITOR IN 90S
[2020-08-16 19:55] VITALS: BP 123/52
--- NOTE | 2020-08-17 03:37 | NUR ---
ASSUMED CARE OF PT AT 1900. PT IS ALERT AND ORIENTED X'S 3. VSS. PERRLA. NO COMPLAINTS OF PAIN. PT HAS A DAVIS IN PLACE. PT IS IN SINUS RYTHM ON THE TELEMETRY. PT IS RESTING COMFORTABLY IN BED. RESPIRATIONS ARE EVEN AND NONLABORED. WILL CONTINUE TO MONITOR PT.
[2020-08-17 04:33] VITALS: BP 134/76
[2020-08-17 08:00] VITALS: BP 123/69
[2020-08-17 09:45] LABS: ABSOLUTE EOSINOPHILS 0.4 thou/uL (0.0-0.7); ABSOLUTE MONOCYTES 0.7 thou/uL (0.0-1.2); ABSOLUTE NEUTROPHILS 5.5 thou/uL (1.6-8.1); BASOPHILS 0.4 %; EOSINOPHILS 5.4 %; HEMATOCRIT 32.5 % (37.0-47.0); MCH 31.2 pg (26.0-34.0); MCHC 32.9 g/dL (28.0-37.0); MCV 94.8 fL (80.0-100.0); MONOCYTES 8.8 %; MPV 8.4 fl. (7.2-11.1); NUCLEATED RBCS 0 /100WBC; PLATELET COUNT* 207 thou/uL (150-400); POLYS 72.4 %; RBC 3.43 mil/uL (4.20-5.00); RDW-CV 14.7 % (10.5-14.5); WBC 7.6 thou/uL (4.0-11.0)
[2020-08-17 09:53] LABS: HEMOGLOBIN 10.7 gm/dL (12.0-15.0)
[2020-08-17 10:21] LABS: ALBUMIN 2.7 g/dL (3.4-5.0); CREATININE 0.8 mg/dL (0.6-1.3); POTASSIUM 4.1 mmol/L (3.5-5.1); TOTAL BILIRUBIN 0.4 mg/dL (<0.1-1.0); TOTAL PROTEIN 5.7 g/dL (6.4-8.2)
--- NOTE | 2020-08-17 10:31 | EKG ---
[place] [address] ELECTROCARDIOGRAM REPORT Name: HAO WILLSON Room: [address] ADM IN ..#: [id number] Admission: 08/16/20 Attend Phys: Redd Rodriguez Discharge: Date of : 46 Date of Service: 08/16/20 1043 Report #: [id number] THIS REPORT FOR: //name// [facility] ED Test Date: 2020-08-16 Test Time: 10:43:44 Pat Name: HAO WILLSON Department: Room: [facility] Gender: F Trapper Bird: [place]Y : 1950 Requested By: Tony Pizarro Order Number: [id number] MD: Siva Gaitan Measurements Intervals [place] Rate: 79 P: 53 [place]: 154 QRS: -15 QRSD: 80 T: 18 QT: 398 QTc: 457 Interpretive Statements Sinus rhythm Inferior infarct, old Compared to ECG 07/13/2020 20:58:38 Atrial premature complex(es) no longer present Myocardial infarct finding still present Electronically Signed On 08-17-2020 10:31:21 PORTER BATH by Siva Gaitan [email or web address] <ELECTRONICALLY SIGNED> By: Siva Gaitan MD, FACC 08/17/20 1031 1043 1043 Siva Gaitan MD, [facility]AC /EPI
--- NOTE | 2020-08-17 11:35 | NUR ---
CM SPOKE TO THE PT AND HER DTR AT THE BEDSIDE TO DISCUSS CM ASSESSMENT. PT RESTING WITH EYES CLOSED DURING ASSESSEMENT. PT'S DTR ANSWERING ASSESSMENT QUESTIONS. PT CAME TO THE HOSPITAL AFTER A FALL AT [facility]. PT'S DTR INFORMS THAT THE PLAN WAS FOR HER TO D/C FROM THERE TODAY, AND GO TO HER NEW ASSISTED LIVING APARTMENT AT THE [facility]. HOWEVER PTMAY NEED TO RETURN TO SNF AT [facility] FOR A FEW MORE DAYS OF THERAPY AT D/C. CM TO REACH OUT TO [facility] TO DETERMINE THEY ARE ABLE TO ACCEPT THE PT TO SNF IF NEEDED AT D/C. CM WILL REMAIN AVAILABLE TO ASSIST AND FOLLOW NEEDED.
--- NOTE | 2020-08-17 14:34 | NUR ---
ASSUMED CARE OF PATIENT THIS AM AT 0730. PATIENT IS ALERT AND CONFUSED AT TIMES. TELE SHOWS NSR. LARGE HEMATOMA NOTED ON PATIENT'S RIGHT LEG. PATIENT DENIES PAIN WHEN ASKED. IV FLUIDS CONTINUED. PATIENT RESTING MOST OF THE DAY. CALL LIGHT IS IN REACH. NO FALLS OR INJURY.
[2020-08-17 17:03] VITALS: BP 134/66
[2020-08-17 19:55] VITALS: BP 123/52; BP 126/57
[2020-08-17 23:36] VITALS: BP 124/62
--- NOTE | 2020-08-18 02:14 | NUR ---
ASSUMED CARE OF PT AT 1900. PT IS ALERT AND ORIENTED; HOWEVER, PT HAS PERIODS OF CONFUSION. VSS. PERRLA. NO COMPLAINTS OF PAIN. PT HAS A DAVIS. PT IS IN SINUS RYTHM ON THE TELEMETRY. PT IS RESTING COMFORTABLY IN BED. RESPIRATIONS ARE EVEN AND NONLABORED. WILL CONTINUE TO MONITOR PT.
[2020-08-18 04:17] LABS: ABSOLUTE EOSINOPHILS 0.6 thou/uL (0.0-0.7); ABSOLUTE LYMPHOCYTES 0.8 thou/uL (0.8-5.3); ABSOLUTE MONOCYTES 0.7 thou/uL (0.0-1.2); ABSOLUTE NEUTROPHILS 5.9 thou/uL (1.6-8.1); BASOPHILS 0.2 %; EOSINOPHILS 7.2 %; HEMATOCRIT 31.4 % (37.0-47.0); HEMOGLOBIN 10.4 gm/dL (12.0-15.0); MCH 31.3 pg (26.0-34.0); MCHC 33.2 g/dL (28.0-37.0); MCV 94.5 fL (80.0-100.0); MONOCYTES 9.3 %; MPV 8.4 fl. (7.2-11.1); NUCLEATED RBCS 0 /100WBC; PLATELET COUNT* 199 thou/uL (150-400); POLYS 73.3 %; RBC 3.33 mil/uL (4.20-5.00); RDW-CV 14.5 % (10.5-14.5)
[2020-08-18 04:24] VITALS: BP 134/76
[2020-08-18 04:35] LABS: ALBUMIN 2.5 g/dL (3.4-5.0); CALCIUM 8.9 mg/dL (8.5-10.1); CREATININE 0.8 mg/dL (0.6-1.3); POTASSIUM 4.1 mmol/L (3.5-5.1); TOTAL BILIRUBIN 0.4 mg/dL (<0.1-1.0); TOTAL PROTEIN 5.3 g/dL (6.4-8.2)
[2020-08-18 08:00] VITALS: BP 141/71
[2020-08-18 12:00] VITALS: BP 133/67
--- NOTE | 2020-08-18 13:19 | NUR ---
ASSUMED CARE OF PATIENT THIS AM AT 0730. PATIENT IS ALERT AND ORIENTED THIS AM. TELE SHOWS SR. NO FALLS OR INJURY. WILL CONTINUE PLAN OF CARE. IV ANTIBIOTICS CONTINUED.
[2020-08-18 16:00] VITALS: BP 125/54
[2020-08-18 20:00] VITALS: BP 130/65
[2020-08-18 23:26] VITALS: BP 130/56
--- NOTE | 2020-08-19 03:44 | NUR ---
ASSUMED PT CARE AT APPROX 1930. PT IS AWAKE AND ORIENTED X4-FORGETFUL. PT IS NOT IN DISTRESS, NO DESATURATIONS NOTED ON ROOM AIR. PT IS TRACING ST w/ OCCASSIONAL PACs ON THE TEACHING SUPERVISOR. PT DENIES PAIN/DISCOMFORT. PT IS REPOSITIONED CHARTED. NO ACUTE CHANGES THIS SHIFT. CALL LIGHT WITHIN REACH. HOURLY ROUNDING DONE FOR PT SAFETY. HIGH FALL PRECAUTIONS IN PLACE.
[2020-08-19 04:02] LABS: ABSOLUTE EOSINOPHILS 0.6 thou/uL (0.0-0.7); ABSOLUTE MONOCYTES 0.8 thou/uL (0.0-1.2); ABSOLUTE NEUTROPHILS 6.7 thou/uL (1.6-8.1); BASOPHILS 0.2 %; EOSINOPHILS 6.5 %; HEMATOCRIT 32.6 % (37.0-47.0); HEMOGLOBIN 10.8 gm/dL (12.0-15.0); LYMPHOCYTES 11.1 %; MCH 31.2 pg (26.0-34.0); MCV 94.8 fL (80.0-100.0); MONOCYTES 8.9 %; MPV 8.2 fl. (7.2-11.1); NUCLEATED RBCS 0 /100WBC; PLATELET COUNT* 208 thou/uL (150-400); POLYS 73.3 %; RBC 3.44 mil/uL (4.20-5.00); RDW-CV 14.7 % (10.5-14.5); WBC 9.1 thou/uL (4.0-11.0)
[2020-08-19 04:11] LABS: CALCIUM 8.7 mg/dL (8.5-10.1); CREATININE 0.9 mg/dL (0.6-1.3); POTASSIUM 4.4 mmol/L (3.5-5.1)
[2020-08-19 05:25] VITALS: BP 131/66
[2020-08-19 08:19] VITALS: BP 133/57
[2020-08-19] MEDS ORDERED: CEFUROXIME500 MG PO (11:38)
[2020-08-19 11:41] VITALS: BP 126/53
--- NOTE | 2020-08-19 15:03 | NUR ---
CM SPK W/PT TODAY WHO IS AGREEABLE TO RTRN'G TO IGNITE BS. DOMINIQUE SPK W/PT'S DTR ALETA, WHO IS ALSO AGREEABLE TO PT RTRN'G TO IGNITE. CM INFORMED ALETA OF PT REMAINING SKILLED DAYS, AND POSSIBLE CO-PAY CHARGES AND ADVISED HER TO DISCUSS FINANCIALS W/IGNITE. CM FAXED UPDATED CLINICALS TO THE FACILITY. RACHEL TO SCHEDULE W/C TRANSPORTATION FOR 1530. US AGREEABLE TO MAKING A CHART COPY. RN PROVIDED W/NUMBER TO CALL REPORT. [phone].
--- NOTE | 2020-08-19 15:43 | NUR ---
PT DISCHARGED TO [facility] REPORT GIVEN TO KERRY CASTRO AND FC DC'D MONITOR TAKEN OFF WELL NO CONCERNS AT THIS TIME GINNY TO BE TAKEN OUT BY WEDNESDAY OR WEDNESDAY FACILITY SAID THEY COULD REMOVE THEM
== END 2020-08-19 15:44 | DRG 871 ==
LOC: M.ERS 10:29 → M.TBA-ER 11:36 → M.2W 11:36
PROVIDERS: Family Medicine; Internal Medicine; ADMIT Internal Medicine; ATTEND Internal Medicine
PROC: 0HQ0XZZ Repair Scalp Skin, External Approach (ICD-10-PCS; principal; 2020-08-16)
DX: A41.9 Sepsis, unspecified organism (principal); G93.41 Metabolic encephalopathy; N17.0 Acute kidney failure with tubular necrosis; N39.0 Urinary tract infection, site not specified; F03.90 Unspecified dementia, unspecified severity, without behavioral disturbance, psychotic disturbance, mood disturbance, and anxiety; S01.91XA Laceration without foreign body of unspecified part of head, initial encounter; R65.20 Severe sepsis without septic shock; S80.11XA Contusion of right lower leg, initial encounter; I12.9 Hypertensive chronic kidney disease with stage 1 through stage 4 chronic kidney disease, or unspecified chronic kidney disease; F32.9 Major depressive disorder, single episode, unspecified; N18.30 Chronic kidney disease, stage 3 unspecified; M81.0 Age-related osteoporosis without current pathological fracture; W18.39XA Other fall on same level, initial encounter; W18.30XA Fall on same level, unspecified, initial encounter; Z20.822 Contact with and (suspected) exposure to COVID-19; Z86.718 Personal history of other venous thrombosis and embolism; Y93.89 Activity, other specified; Y92.89 Other specified places as the place of occurrence of the external cause; Y99.8 Other external cause status; Z90.710 Acquired absence of both cervix and uterus; Z86.16 Personal history of COVID-19; Z79.01 Long term (current) use of anticoagulants; Z79.899 Other long term (current) drug therapy

== ENCOUNTER 2020-09-12 19:11 | Inpatient (IN) | payer MEDICARE, BC ==
[~2020-09-12] VITALS: Ht 170.2 cm; Wt 80.4 kg
--- NOTE | ~2020-09-12 | EMS ---
[facility] [address] [place] [address] EMS Patient Care Report Name: HAO WILLSON [id number] Admission: 09/12/20 Attend Phys: Discharge: Date of : 46 Report #: [id number] THIS REPORT FOR: //name// Report Transmitted: 09/12/2020 19:32 EMS Care Summary [facility] [place] Incident [id number] @ 09/12/2020 18:23 Incident Location [address] [place] [address] Patient HAO WILLSON Female, 70 Years 1950 Patient Address [address] [place] [address] Patient History Other venous embolism and thrombosis,Hypertension (HTN),Novel Coronavirus (COVID-19),Acute kidney failure, unspecified,Sepsis, Patient Allergies No known allergies, Patient Medications Lisinopril, Chief Complaint Vomiting Disposition Transported No Lights/[place] Dispatch Reason Sick Person Transported To [facility] Narrative [facility] RESPOND TO IGNITE OF [place] RM 137B. 70YO FEMALE WITH FEVER, VOMITING, AND CHILLS. NURSE STATES THIS MORNING PT STARTED HAVING A FEVER OF 101. SHE WAS GIVEN TYLENOL. HER LAST TEMP WAS 100.1. SHE STARTED BECOMING [facility] [address] [place] [address] EMS Patient Care Report Name: HAO WILLSON Room: [facility]#: [id number] Admission: 09/12/20 Attend Phys: Discharge: Date of : 46 Report #: [id number] LETHARGIC, HAVING NAUSEA, AND VOMITING. SHE HAS NOT ATE ANYTHING SINCE THIS MORNING. HER STOMACH LOOKS MORE DISTENDED. SHE IS HERE FOR TREATMENT OF THE WOUND TO HER RIGHT LEG. THERE IS A SMALL WOUND THAT WEEPS FLUID. PT STATES SHE'S NOT HAVING ANY PAIN ANYWHERE. NO SOB. SHE'S NOT FEELING NAUSEATED AT THIS TIME. NURSE STATES [facility] PT STATES SHE IS FEELING NAUSEATED. THE ZOFRAN DID HELP. NO NEW COMPLAINTS. FOUND 70YO FEMALE LAYING SUPINE SEMI FOWLERS IN BED. PT IS ALERT. AIRWAY IS OPEN. BREATHING IS NON LABORED. SKIN IS HOT, PINK, AND DRY. PT IS A&OX4. HEENT UNREMARKABLE. EQUAL CHEST RISE AND FALL. BREATH SOUNDS CLEAR IN ALL [place]. ABD IS DISTENDED, SOFT/NON RIGID. PELVIS INTACT. PT HAS ALL 4 EXTREMITIES WITH EQUAL STRENGTH AND MOVEMENT TO ALL. PT VOMITED BILE PRIOR TO MOVING TO STRETCHER. PT VOMITED BILE AND FOOD PARTICLES DURING TRANSPORT TO THE HOSPITAL. NO OTHER EPISODES OF VOMITING. NO OTHER VISIBLE ABNORMALITIES FOUND AT THIS TIME. ASSESSED PT AND OBTAINED REPORT FROM NURSE. PT STOOD AND PIVOTED WITH 1 PERSON ASSIST FROM BED TO STRETCHER. SECURED PT TO STRETCHER WITH 5 STRAPS AND 2 RAILS. OBTAINED V/S, PULSE OX READING, AND 4 LEAD EKG. ATTEMPTED TO OBTAIN TEMPERATURE READING. 20G IV ATTEMPT IN LEFT AC, CATHETER WOULD NOT ADVANCE. STARTED 20G IV IN LEFT WRIST. WAS ONLY ABLE TO DRAW SMALL AMOUNT OF BLOOD FOR LABS. FLUSHED LOCK WITH NS FLUSH. CHECKED D-STICK. CONTINUED TO MONITOR PT, CALLED REPORT, AND ADMINISTERED 4MG OF LESLIE IVP FOLLOWED BY NS FLUSH DURING TRANSPORT. TRANSFERRED PT FROM STRETCHER TO BED BY DRAW SHEET. TURNED OVER PT CARE TP [facility]. Initial Vitals @18:45SpO2: 96, @19:06SpO2: 93, @18:41 @18:42P: 110,R: 16,BP: 142/84, @19:05P: 97,R: 16,BP: 175/87, @18:42GCS: 15, @19:05GCS: 15, @18:37 @18:55Glucose: 122, Assessments @18:37MENTAL:SKIN:HEENT:LUNG SOUNDS:ABDOMEN:PELVIS//GI:EXTREMITIES:PULSE:NEURO: Impression Sepsis/Septicemia Procedures @19:02Ondansetron - 4.000 Milligrams (mg) - Intravenous (IV)Response: Improved@18:51 cc () Site: Antecubital-LeftResponse: UnchangedFailed@18:53 cc () Site: Other Peripheral (Not Listed)Response: UnchangedSucceeded@18:413-Lead ECGResponse: [place] [address] EMS Patient Care Report Name: HAO WILLSON [facility] [id number] Admission: 09/12/20 Attend Phys: Discharge: Date of : 46 Report #: [id number] Timeline 18:22,Call Received 18:22,Dispatch Notified 18:22,Psap Call 18:23,Dispatched 18:23,En Route 18:29,On Scene 18:37,At Patient 18:37,BP: / M,PULSE: ,RR: R,SPO2: Ox,ETCO2: ,BG: ,PAIN: ,GCS: , 18:41,3-Lead ECG,Response: UnchangedSucceeded, 18:41,BP: / M,PULSE: ,RR: R,SPO2: Ox,ETCO2: ,BG: ,PAIN: ,GCS: , 18:42,BP: 142/84 M,PULSE: 110,RR: 16 R,SPO2: Ox,ETCO2: ,BG: ,PAIN: ,GCS: , 18:42,BP: / M,PULSE: ,RR: R,SPO2: Ox,ETCO2: ,BG: ,PAIN: ,GCS: 15, 18:45,BP: / M,PULSE: ,RR: R,SPO2: 96 Ox,ETCO2: ,BG: ,PAIN: ,GCS: , 18:51, cc Site: Antecubital-Left,Response: UnchangedFailed, 18:53, cc Site: Other Peripheral (Not Listed),Response: UnchangedSucceeded, 18:55,BP: / M,PULSE: ,RR: R,SPO2: Ox,ETCO2: ,B,PAIN: ,GCS: , 18:57,Depart Scene 19:02,Ondansetron - 4.000 Milligrams (mg) - Intravenous (IV),Response: Improved 19:05,BP: 175/87 M,PULSE: 97,RR: 16 R,SPO2: Ox,ETCO2: ,BG: ,PAIN: ,GCS: , 19:05,BP: / M,PULSE: ,RR: R,SPO2: Ox,ETCO2: ,BG: ,PAIN: ,GCS: 15, 19:06,BP: / M,PULSE: ,RR: R,SPO2: 93 Ox,ETCO2: ,BG: ,PAIN: ,GCS: , 19:09,At Destination 19:26,Call Closed Disclaimer v1.1 Copyright 2020 [employer] This EMS Care Summary contains data elements from the applicable legal record (which may be displayed differently). It is designed to provide pertinent information for the following purposes: continuity of care, clinical quality, and state data reporting. The complete legal record is available to ED staff and administrators of the receiving hospital in [employer] Patient Tracker. All data is provided "as is."
[~2020-09-12 19:11] MED LIST changes: +CEFUROXIME500 MG PO; +ONE DAILY ESSE1 EACH PO
[2020-09-12 19:18] VITALS: BP 172/75
[2020-09-12 19:46] LABS: ABSOLUTE BASOPHILS 0.1 thou/uL (0.0-0.2); ABSOLUTE EOSINOPHILS 0.3 thou/uL (0.0-0.7); ABSOLUTE LYMPHOCYTES 0.9 thou/uL (0.8-5.3); ABSOLUTE MONOCYTES 1.1 thou/uL (0.0-1.2); ABSOLUTE NEUTROPHILS 11.5 thou/uL (1.6-8.1); BASOPHILS 0.4 %; EOSINOPHILS 2.1 %; HEMATOCRIT 38.1 % (37.0-47.0); HEMOGLOBIN 12.1 gm/dL (12.0-15.0); LYMPHOCYTES 6.6 %; MCH 28.3 pg (26.0-34.0); MCHC 31.7 g/dL (28.0-37.0); MCV 89.4 fL (80.0-100.0); MONOCYTES 7.8 %; MPV 7.5 fl. (7.2-11.1); NUCLEATED RBCS 0 /100WBC; PLATELET COUNT* 437 thou/uL (150-400); POLYS 83.1 %; RBC 4.26 mil/uL (4.20-5.00); RDW-CV 16.7 % (10.5-14.5); WBC 13.8 thou/uL (4.0-11.0)
[2020-09-12] MEDS ORDERED: NIZORAL A-D125 ML TOP (19:46)
[2020-09-12] MEDS ORDERED: NYSTATIN15 G3 TOP (19:47)
[2020-09-12 19:50] LABS: CALCIUM 9.2 mg/dL (8.5-10.1); CREATININE 0.9 mg/dL (0.6-1.3); POTASSIUM 3.1 mmol/L (3.5-5.1)
[2020-09-12 19:55] LABS: ALBUMIN 3.2 g/dL (3.4-5.0); TOTAL BILIRUBIN 0.5 mg/dL (<0.1-1.0); TOTAL PROTEIN 6.9 g/dL (6.4-8.2)
[2020-09-12 19:56] LABS: APTT 23.6 Seconds (25.0-31.3); PROTIME 10.6 Seconds (9.20-11.50)
[2020-09-12 23:40] VITALS: BP 124/62
[2020-09-13 00:15] VITALS: BP 116/57
[2020-09-13 00:16] VITALS: BP 127/76
[2020-09-13 06:52] LABS: URINE BILIRUBIN NEGATIVE (Negative); URINE BLOOD NEGATIVE (Negative); URINE CLARITY CLEAR; URINE COLOR YELLOW; URINE GLUCOSE-RANDOM NEGATIVE (Negative); URINE KETONES NEGATIVE (Negative); URINE LEUKOCYTES-REFLEX NEGATIVE (Negative); URINE NITRITE-REFLEX NEGATIVE (Negative); URINE PROTEIN NEGATIVE (Negative); URINE UROBILINOGEN 0.2 E.U./dl (0.2-1.0)
[2020-09-13 08:00] VITALS: BP 114/56
[2020-09-13 16:03] VITALS: BP 114/48
[2020-09-13 22:19] VITALS: BP 116/53
[2020-09-14] VITALS (7 sets, daily range): BP systolic 101–118; BP diastolic 39–56
[2020-09-14 05:17] LABS: HEMATOCRIT 32.3 % (37.0-47.0); MCHC 31.4 g/dL (28.0-37.0); MCV 89.2 fL (80.0-100.0); MPV 7.7 fl. (7.2-11.1); NUCLEATED RBCS 0 /100WBC; RBC 3.62 mil/uL (4.20-5.00); RDW-CV 16.7 % (10.5-14.5); WBC 11.1 thou/uL (4.0-11.0)
[2020-09-14 05:32] LABS: HEMOGLOBIN 10.1 gm/dL (12.0-15.0); PLATELET COUNT* 343 thou/uL (150-400)
[2020-09-14 05:38] LABS: ALBUMIN 2.1 g/dL (3.4-5.0); CALCIUM 8.4 mg/dL (8.5-10.1); CREATININE 0.9 mg/dL (0.6-1.3); MAGNESIUM 1.8 mg/dL (1.8-2.4); PHOSPHORUS* 2.1 mg/dL (2.5-4.9); POTASSIUM 4.1 mmol/L (3.5-5.1); TOTAL BILIRUBIN 0.5 mg/dL (<0.1-1.0); TOTAL PROTEIN 5.2 g/dL (6.4-8.2)
[2020-09-14 06:30] LABS: ABSOLUTE EOSINOPHILS 0.6 thou/uL (0.0-0.7); ABSOLUTE LYMPHOCYTES 0.7 thou/uL (0.8-5.3); ABSOLUTE NEUTROPHILS 9.9 thou/uL (1.6-8.1); ATYPICAL LYMPHS 1 %; PLATELET ESTIMATE ADEQUATE
[2020-09-15 08:00] VITALS: BP 115/52
[2020-09-15 16:00] VITALS: BP 113/53
[2020-09-15 19:14] VITALS: BP 113/47
[2020-09-15 21:09] VITALS: BP 118/67
[2020-09-16 00:04] VITALS: BP 110/59
[2020-09-16 04:29] LABS: HEMATOCRIT 26.1 % (37.0-47.0); HEMOGLOBIN 8.5 gm/dL (12.0-15.0); MCH 28.5 pg (26.0-34.0); MCHC 32.6 g/dL (28.0-37.0); MCV 87.5 fL (80.0-100.0); MPV 7.9 fl. (7.2-11.1); RBC 2.98 mil/uL (4.20-5.00); RDW-CV 16.6 % (10.5-14.5); WBC 6.3 thou/uL (4.0-11.0)
[2020-09-16 04:56] LABS: CALCIUM 8.4 mg/dL (8.5-10.1); MAGNESIUM 1.9 mg/dL (1.8-2.4); POTASSIUM 3.4 mmol/L (3.5-5.1); TOTAL BILIRUBIN 0.4 mg/dL (<0.1-1.0); TOTAL PROTEIN 5.1 g/dL (6.4-8.2)
[2020-09-16 08:18] VITALS: BP 126/58
[2020-09-16 16:27] VITALS: BP 115/54
[2020-09-16 20:59] VITALS: BP 121/69
[2020-09-16 23:36] VITALS: BP 137/57
[2020-09-17 04:17] LABS: HEMATOCRIT 28.5 % (37.0-47.0); MCH 27.8 pg (26.0-34.0); MCHC 31.5 g/dL (28.0-37.0); MCV 88.4 fL (80.0-100.0); MPV 8.2 fl. (7.2-11.1); RBC 3.23 mil/uL (4.20-5.00); RDW-CV 16.8 % (10.5-14.5); WBC 6.9 thou/uL (4.0-11.0)
[2020-09-17 04:27] LABS: ALBUMIN 2.2 g/dL (3.4-5.0); CALCIUM 8.9 mg/dL (8.5-10.1); CREATININE 0.9 mg/dL (0.6-1.3); POTASSIUM 4.2 mmol/L (3.5-5.1); TOTAL BILIRUBIN 0.4 mg/dL (<0.1-1.0); TOTAL PROTEIN 5.6 g/dL (6.4-8.2)
[2020-09-17 08:00] VITALS: BP 130/66
[2020-09-17 16:00] VITALS: BP 112/70
[2020-09-17 20:30] VITALS: BP 137/70
[2020-09-18 00:30] VITALS: BP 145/75
[2020-09-18 16:00] VITALS: BP 116/66
[2020-09-18 20:00] VITALS: BP 123/60
[2020-09-19 00:09] VITALS: BP 139/70
[2020-09-19 04:44] LABS: HEMATOCRIT 28.5 % (37.0-47.0); HEMOGLOBIN 8.9 gm/dL (12.0-15.0); MCH 27.8 pg (26.0-34.0); MCHC 31.4 g/dL (28.0-37.0); MCV 88.7 fL (80.0-100.0); MPV 7.7 fl. (7.2-11.1); RBC 3.21 mil/uL (4.20-5.00); RDW-CV 16.7 % (10.5-14.5); WBC 6.8 thou/uL (4.0-11.0)
[2020-09-19 05:03] LABS: CREATININE 0.9 mg/dL (0.6-1.3); POTASSIUM 3.5 mmol/L (3.5-5.1)
[2020-09-19 08:00] VITALS: BP 131/69
[2020-09-19] MEDS ORDERED: LINEZOLID600 MG PO (09:36)
[2020-09-19 09:49] VITALS: BP 131/69
== END 2020-09-19 14:30 | DRG 853 ==
LOC: M.ERS 19:11 → M.TBA-ER 22:27 → M.ORTHSURG 22:27 → M.2W 09-15 20:21
PROVIDERS: Internal Medicine; Pediatrics; Personal Emergency Response Attendant; ADMIT Internal Medicine; ATTEND Internal Medicine
DX: A41.9 Sepsis, unspecified organism (principal); J96.01 Acute respiratory failure with hypoxia; J15.6 Pneumonia due to other Gram-negative bacteria; M72.6 Necrotizing fasciitis; L03.115 Cellulitis of right lower limb; L02.415 Cutaneous abscess of right lower limb; Z20.822 Contact with and (suspected) exposure to COVID-19; M81.0 Age-related osteoporosis without current pathological fracture; F03.90 Unspecified dementia, unspecified severity, without behavioral disturbance, psychotic disturbance, mood disturbance, and anxiety; I10 Essential (primary) hypertension; F32.9 Major depressive disorder, single episode, unspecified; Z96.659 Presence of unspecified artificial knee joint; S80.11XA Contusion of right lower leg, initial encounter; X58.XXXA Exposure to other specified factors, initial encounter; Z90.710 Acquired absence of both cervix and uterus; Z86.718 Personal history of other venous thrombosis and embolism; Z86.16 Personal history of COVID-19; Y93.89 Activity, other specified; Y92.89 Other specified places as the place of occurrence of the external cause; Y99.8 Other external cause status

== ENCOUNTER → 2020-09-23 | Outpatient (CLI) | payer MEDICARE, BC ==
[~2020-09-23] MED LIST changes: +LINEZOLID600 MG PO; +NIZORAL A-D125 ML TOP; +NYSTATIN15 G3 TOP
== END ==
LOC: M.WC 13:34
PROVIDERS: ATTEND Podiatrist Foot & Ankle Surgery
DX: S81.801A Unspecified open wound, right lower leg, initial encounter (principal); L97.812 Non-pressure chronic ulcer of other part of right lower leg with fat layer exposed; B95.62 Methicillin resistant Staphylococcus aureus infection as the cause of diseases classified elsewhere; I10 Essential (primary) hypertension; M81.0 Age-related osteoporosis without current pathological fracture; F32.9 Major depressive disorder, single episode, unspecified; F03.90 Unspecified dementia, unspecified severity, without behavioral disturbance, psychotic disturbance, mood disturbance, and anxiety; Z86.718 Personal history of other venous thrombosis and embolism; Z90.710 Acquired absence of both cervix and uterus; W19.XXXA Unspecified fall, initial encounter; Y93.89 Activity, other specified; Y92.89 Other specified places as the place of occurrence of the external cause; Y99.8 Other external cause status

== ENCOUNTER → 2020-10-07 | Outpatient (CLI) | payer MEDICARE, BC | LOC: M.WC 12:46 | PROVIDERS: ATTEND Podiatrist Foot & Ankle Surgery | DX: S81.801D Unspecified open wound, right lower leg, subsequent encounter (principal); L97.812 Non-pressure chronic ulcer of other part of right lower leg with fat layer exposed; L97.211 Non-pressure chronic ulcer of right calf limited to breakdown of skin; L97.222 Non-pressure chronic ulcer of left calf with fat layer exposed; B95.62 Methicillin resistant Staphylococcus aureus infection as the cause of diseases classified elsewhere; I10 Essential (primary) hypertension; M81.0 Age-related osteoporosis without current pathological fracture; F32.9 Major depressive disorder, single episode, unspecified; F03.90 Unspecified dementia, unspecified severity, without behavioral disturbance, psychotic disturbance, mood disturbance, and anxiety; Z86.718 Personal history of other venous thrombosis and embolism; W19.XXXD Unspecified fall, subsequent encounter ==

== ENCOUNTER → 2020-10-21 | Outpatient (CLI) | payer MEDICARE, BC | LOC: M.WC 12:59 | PROVIDERS: ATTEND Podiatrist Foot & Ankle Surgery | DX: S81.801D Unspecified open wound, right lower leg, subsequent encounter (principal); L97.812 Non-pressure chronic ulcer of other part of right lower leg with fat layer exposed; B95.62 Methicillin resistant Staphylococcus aureus infection as the cause of diseases classified elsewhere; I10 Essential (primary) hypertension; M81.0 Age-related osteoporosis without current pathological fracture; F32.9 Major depressive disorder, single episode, unspecified; F03.90 Unspecified dementia, unspecified severity, without behavioral disturbance, psychotic disturbance, mood disturbance, and anxiety; Z86.718 Personal history of other venous thrombosis and embolism; W19.XXXD Unspecified fall, subsequent encounter ==

== ENCOUNTER → 2020-10-28 | Outpatient (CLI) | payer MEDICARE, BC | LOC: M.WC 13:48 | PROVIDERS: ATTEND Emergency Medicine Undersea and Hyperbaric Medicine | DX: S81.801D Unspecified open wound, right lower leg, subsequent encounter (principal); L97.812 Non-pressure chronic ulcer of other part of right lower leg with fat layer exposed; L03.115 Cellulitis of right lower limb; L84 Corns and callosities; B95.62 Methicillin resistant Staphylococcus aureus infection as the cause of diseases classified elsewhere; L60.3 Nail dystrophy; I10 Essential (primary) hypertension; M81.0 Age-related osteoporosis without current pathological fracture; F32.9 Major depressive disorder, single episode, unspecified; F03.90 Unspecified dementia, unspecified severity, without behavioral disturbance, psychotic disturbance, mood disturbance, and anxiety; Z86.718 Personal history of other venous thrombosis and embolism; W19.XXXD Unspecified fall, subsequent encounter ==

== ENCOUNTER 2021-04-29 11:26 | Emergency (ER) | payer MEDICARE, BC ==
[~2021-04-29] VITALS: Ht 170.2 cm; Wt 79.4 kg
[2021-04-29 12:09] LABS: URINE BILIRUBIN NEGATIVE (Negative); URINE BLOOD NEGATIVE (Negative); URINE CLARITY CLEAR; URINE COLOR YELLOW; URINE GLUCOSE-RANDOM NEGATIVE (Negative); URINE KETONES NEGATIVE (Negative); URINE LEUKOCYTES-REFLEX NEGATIVE (Negative); URINE NITRITE-REFLEX NEGATIVE (Negative); URINE PROTEIN NEGATIVE (Negative); URINE UROBILINOGEN 0.2 E.U./dl (0.2-1.0)
[2021-04-29] MEDS ORDERED: BACTRIM DS TAB1 EACH PO (13:37)
[2021-04-29 14:02] VITALS: BP 158/94
== END 2021-04-29 14:03 | disposition home or self-care (01) ==
LOC: M.ERS 11:26
PROVIDERS: Nurse Practitioner Family
DX: S51.012A Laceration without foreign body of left elbow, initial encounter (principal); M25.512 Pain in left shoulder; W19.XXXA Unspecified fall, initial encounter; Y93.89 Activity, other specified; Y92.89 Other specified places as the place of occurrence of the external cause; Y99.8 Other external cause status